=== PATIENT | male | born 1985 | race Caucasian/White ===

== ENCOUNTER 2022-03-19 16:50 | Emergency (ER) | payer OTHER, SELFPAY ==
--- NOTE | ~2022-03-19 | CT_ITS ---
EXAMINATION: CT abdomen pelvis w con DATE: 03/19/2022 20:38 INDICATION: Left lower quadrant abdominal pain, diarrhea and constipation TECHNIQUE: Computed tomography (CT) of the abdomen and pelvis was performed with 100 cc Omnipaque 350 intravenous contrast. The dose-length product was 881.33 mGy-cm. Automated exposure control and iter ative reconstruction technique were employed. COMPARISON: None. FINDINGS: Lung bases are unremarkable. Size normal. No significant pleural or pericardial effusion. T he liver, spleen, pancreas, adrenal glands and left kidney are unremarkable. There are nonobstructing right renal stones. Gallbladder is contracted. There is diverticulosis. There is mild pericolonic st randing anterior to the descending colon which may reflect mild diverticulitis or epiploic appendigit is. No evidence for perforation or abscess. There is an accessory splenule in the left upper abdomen. Nonobstructive bowel pattern. No abnormal pelvic masses or fluid collections. Tiny fat-containing um bilical hernia. IMPRESSION: 1. Mild pericolonic stranding anterior to the descending colon which may reflect mild diverticulitis or epiploic appendigitis. 2: Nonobstructing right nephrolithiasis. Reviewed, dictated and finalized at location A. IMPRESSION: 1. Mild pericolonic stranding anterior to the descending colon which may reflec t mild diverticulitis or epiploic appendigitis. 2: Nonobstructing right nephrolithiasis.
[2022-03-19 16:56] VITALS: BP 138/88; PULSE 95; RESP 16; TEMP 36.1; O2SAT 97
--- NOTE | 2022-03-19 19:02 | ED.ABDPAIN ---
HPI - Abdominal Pain General Chief Complaint: Abdominal Pain Stated Complaint: L abd pain Time Seen by Provider: 03/19/22 18:43 Source: patient Mode of arrival: ambulatory Limitations: no limitations History of Present Illness HPI narrative: This is a 37-year-old male that presents to the emergency department for left-sided abdominal pain. Ongoing over the last couple of days. Reports an episode of diarrhea. Denies fever or vomiting. Related Data Allergies Allergy/AdvReac Type Severity Reaction Status Date / Time No Known Allergies Allergy Unverified 01/05/21 14:12 Review of Systems Review of Systems: CONSTITUTIONAL: Denies fever GASTROINTESTINAL: Reports abdominal pain, and diarrhea. 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 HEAD: Normocephalic, atraumatic. EYES: EOMI. CHEST: Clear to auscultation. No respiratory distress. No wheezes rales or rhonchi HEART: Regular rate and rhythm. No murmur heard. Normal peripheral pulses. ABDOMEN: Soft, nondistended, normal active bowel sounds. Tender to palpation throughout the left side of the abdomen, without guarding. No CVA tenderness EXTREMITIES: Normal range of motion. No edema. SKIN: Warm, dry, no rash. NEURO: No focal deficits. Alert and oriented x3. PSYCH: Normal mood and affect Course Vital Signs Vital signs: Vital Signs Temperature 96.9 F L 03/19/22 16:56 Pulse Rate 95 03/19/22 16:56 Respiratory Rate 16 03/19/22 16:56 Blood Pressure 138/88 03/19/22 16:56 Pulse Oximetry 97 03/19/22 16:56 Oxygen Delivery Room Air 03/19/22 16:56 Temperature 97.3 F L 03/19/22 20:22 Pulse Rate 70 03/19/22 20:22 Respiratory Rate 16 03/19/22 20:22 Blood Pressure 142/78 H 03/19/22 20:22 Pulse Oximetry 100 03/19/22 20:22 Oxygen Delivery Room Air 03/19/22 16:56 MDM - Abdominal Pain MDM Narrative Medical decision making narrative: Patient presents to the ER for left sided abdominal pain ongoing over the last couple of days. He is afebrile and nontoxic appearing. Vitals are stable. CBC without leukocytosis. Metabolic panel without concerning findings. CT scan of the abdomen pelvis shows findings consistent with mild diverticulitis. Patient was updated on case findings. Will be started on oral antibiotics. He is to follow-up with his primary care doctor. He was given warnings to return to the ER Lab Data Attestation: I reviewed the patient's lab results. Result diagrams: 03/19/22 19:28 03/19/22 19:28 Labs: Lab Results 03/19/22 03/19/22 03/19/22 Range/Units 19:28 19:28 19:28 WBC 9.0 (4.5-10.0) K/mm3 RBC 4.89 (4.6-6.20) M/mm3 Hgb 14.9 (14.0-18.0) g/dL Hct 44.4 (42.0-52.0) % MCV 90.8 (80-100) fl MCH 30.5 (26-34) pg MCHC 33.6 (32-36) g/dl RDW 12.6 (11.5-14.5) % Plt Count 241 (150-375) k/mm3 MPV 10.5 H (7.4-10.4) fl Immature Gran % (Auto) 0.2 (0-0.5) % Neut % (Auto) 61.8 (45.5-73.1) % Lymph % (Auto) 26.4 (18.3-44.2) % [place] % (Auto) 7.6 (2.6-8.5) % Eos % (Auto) 3.6 (0-4.4) % Baso % (Auto) 0.4 (0.2-1.2) % Lymph # (Auto) 2.37 (0.9-3.2) K/mm3 [place] # (Auto) 0.7 H (0.1-0.6) K/mm3 Eos # (Auto) 0.3 (0-0.3) K/mm3 Baso # (Auto) 0.0 (0.0-0.1) K/mm3 Abs Immat Gran (auto) 0.02 (0.00-0.031) K/mm3 Absolute Neuts (auto) 5.5 (1.3-6.7) K/mm3 Absolute Nucleated RBC
[2022-03-19 19:21] VITALS: BP 132/76; PULSE 82; RESP 16; TEMP 36.3; O2SAT 100
[2022-03-19 19:34] LABS: Basophils Percent Auto 0.4 % (0.2-1.2); Eosinophils Absolute Auto 0.3 K/mm3 (0-0.3); Eosinophils Percent Auto 3.6 % (0-4.4); Hematocrit 44.4 % (42.0-52.0); Hemoglobin 14.9 g/dL (14.0-18.0); Immature Granulocyte Absolute 0.02 K/mm3 (0.00-0.031); Immature Granulocyte Percent A 0.2 % (0-0.5); Lymphocytes Absolute Auto 2.37 K/mm3 (0.9-3.2); Lymphocytes Percent Auto 26.4 % (18.3-44.2); Mean Corpuscular HGB Conc 33.6 g/dl (32-36); Mean Corpuscular Hemoglobin 30.5 pg (26-34); Mean Corpuscular Volume 90.8 fl (80-100); Mean Platelet Volume 10.5 fl (7.4-10.4); Monocytes Absolute Auto 0.7 K/mm3 (0.1-0.6); Monocytes Percent Auto 7.6 % (2.6-8.5); Neutrophils Absolute Auto 5.5 K/mm3 (1.3-6.7); Neutrophils Percent Auto 61.8 % (45.5-73.1); Platelet Count Result 241 k/mm3 (150-375); Red Blood Count 4.89 M/mm3 (4.6-6.20); Red Cell Distribution Width 12.6 % (11.5-14.5)
[2022-03-19 19:35] LABS: Appearance Urine Clear (Clear); Bilirubin Urine Negative (Negative); Blood Urine Negative (Negative); Color Urine Yellow (Yellow); Glucose Urine UA Negative (Negative); Ketones Urine Negative (Negative); Leukocyte Esterase Ur Negative LEU/UL (Negative); Nitrate Urine Negative (Negative); Protein Urine Negative (Negative); Specific Grav Ur 1.025 (1.001-1.035); Urobilinogen Urine 0.2 mg/dL (<2.0); pH Urine 6.5 (5.0-9.0)
[2022-03-19 19:38] LABS: Add Urine Microscopic? NO
[2022-03-19 19:43] LABS: Alanine Aminotransferase 33 U/L (6-50); Albumin Level 4.6 g/dL (3.5-5.1); Alkaline Phosphatase 61 U/L (38-126); Anion Gap 10 mmol/L (8-16); Aspartate Amino Transferase 28 U/L (17-59); Bilirubin,Total 0.5 mg/dL (0.2-1.3); Blood Urea Nitrogen 18 mg/dL (9-20); Calcium 9.6 mg/dL (8.4-10.2); Carbon Dioxide 27 mmol/L (22-30); Chloride 103 mmol/L (98-107); Estimated CRCL calculation 92 ml/min; Estimated Glomerular Filt Rate > 60; Glucose 93 mg/dL (65-110); Lipase 58 U/L (23-300); Potassium 3.9 mmol/L (3.4-5.0); Sodium 140 mmol/L (137-145)
[2022-03-19 20:22] VITALS: BP 142/78; PULSE 70; RESP 16; TEMP 36.3; O2SAT 100
[2022-03-19] MEDS: AMOXICILLIN/CLAVULANATE K 875-125 MG TAB 1 TABLET PO (21:21)
[2022-03-19 21:39] VITALS: BP 136/70; PULSE 74; RESP 16; TEMP 36.7; O2SAT 98
== END 2022-03-19 21:42 | disposition home or self-care (01) ==
PROVIDERS: Emergency Provider Emergency Medicine; PCP Nurse Practitioner Adult Health
DX: K57.92 Diverticulitis of intestine, part unspecified, without perforation or abscess without bleeding (principal); N20.0 Calculus of kidney
CPT/HCPCS: 36415; 74177; 80053; 81003; 83690; 85025; 99284; A9270; Q9967

== ENCOUNTER 2022-04-13 15:00 | Emergency (ER) | payer OTHER, SELFPAY ==
[2022-04-13 15:30] VITALS: BP 145/92; PULSE 74; RESP 14; TEMP 36.7; O2SAT 100
--- NOTE | 2022-04-13 16:47 | ED.WOUNDLAC ---
HPI - Wound/Laceration General Chief Complaint: Wound/Laceration <Dixie Barker PA-C - Last Filed: 04/13/22 19:29> Stated Complaint: left lower leg injury <Dixie Barker PA-C - Last Filed: 04/13/22 19:29> Time Seen by Provider: 04/13/22 16:25 <Dixie Barker PA-C - Last Filed: 04/13/22 19:29> History of Present Illness HPI narrative: Patient is a 37-year-old male here for evaluation of a lesion to his right lower extremity. Patient states that he was working in his yard when he accidentally scraped his right avila against the underside of his truck. This led to a laceration. Patient states the bleeding was controlled prior to arrival but he was told by some of his colleagues to come to the ED for evaluation. He is unsure of his last tetanus shot. <Dixie Barker PA-C - Last Filed: 04/13/22 19:29> Related Data Allergies/Adverse Reactions: Allergies Allergy/AdvReac Type Severity Reaction Status Date / Time No Known Allergies Allergy Verified 04/13/22 16:45 <Dixie Barker PA-C - Last Filed: 04/13/22 19:29> Review of Systems Review of Systems: Gen: Denies fevers or chills Eyes: Denies eye pain or visual change ENT: Denies congestion Respiratory: Denies shortness of breath or cough CV: Denies chest pain or palpitations GI: Denies abdominal pain nausea, emesis or diarrhea denies burning, urgency, frequency or hematuria Musculoskeletal: Denies back pain or muscle pain Neuro: Denies numbness, tingling, weakness or focal weakness Skin: Reports laceration to right lower extremity Except as documented, all other systems reviewed and negative <KIM Zavala Last Filed: 04/13/22 19:29> [facility] Past Medical History Medical History: Medical History De Quervain's tenosynovitis, left <SUNITA ZavalaC - Last Filed: 04/13/22 19:29> Social History Social History: Social History Smoking status: Never smoker Alcohol intake: never Additional occupation/education comments: vocational nurse Gender identity (if verbalized by the patient): Male <Dixie Barker PA-C - Last Filed: 04/13/22 19:29> Exam Narrative: Gen: Alert, oriented, no acute distress Eyes: EOMI, no icterus Pulm: Respirations even and unlabored, symmetric thorax expansion, no audible stridor or visible cyanosis CV: Regular rate per telemetry GI: No distension, no voluntary/involuntary guarding Neuro: AOx4, moves all extremities without apparent difficulty or weakness, follows commands MSK: Full range of motion in right foot, sensation intact distal to injury. Skin: Patient has a 2 x 3 cm gash to his right lower extremity with no active bleeding, no visible muscle tendons. Psych: Normal mood/affect, insight/judgement good, adequate fund of knowledge, recent/remote memory intact <Dixie Barker PA-C - Last Filed: 04/13/22 19:29> Course [employer]OR[employer]OOK BOARD ATTENDANT/PA Physician Supervision For this patient encounter, I reviewed the SPORTS BOOK BOARD ATTENDANT or PA documentation, treatment plan, and medical decision making. I was available for consultation as needed. <Anna Shrestha MD - Last Filed: 04/18/22 11:59> Vital Signs Vital signs: Vital Signs Temperature 98.0 F 04/13/22 15:30 Pulse Rate 74 04/13/22 15:30 Respiratory Rate 14 04/13/22 15:30 Blood Pressure 145/92 H 04/13/22 15:30 Pulse Oximetry 100 04/13/22 15:30 Oxygen Delivery Room Air 04/13/22 15:30 Temperature 98.0 F 04/13/22 15:30 Pulse Rate 70 04/13/22 17:50 Respiratory Rate 16 04/13/22 17:50 Blood Pressure 140/90 04/13/22 17:50 Pulse Oximetry 100 04/13/22 17:50 Oxygen Delivery Room Air 04/13/22 15:30 <Dixie Barkre PA-C - Last Filed: 04/13/22 19:29> Vital Signs Temperature 98.0 F 04/13/22 15:30 Pulse Rate 74 04/13/22 15:30 Respirat
[2022-04-13] MEDS: TETANUS,DIPHTHERIA,AC PERTUSSIS ADULT (0.5 ML) BOOSTRIX IM (17:03)
[2022-04-13] MEDS: CEPHALEXIN 500 MG CAPSULE PO (17:04)
[2022-04-13 17:50] VITALS: BP 140/90; PULSE 70; RESP 16; O2SAT 100
== END 2022-04-13 17:50 | disposition home or self-care (01) ==
LOC: ANHED 17:30
PROVIDERS: Emergency Provider Emergency Medicine; PCP Nurse Practitioner Adult Health
DX: S80.812A Abrasion, left lower leg, initial encounter (principal); Z23 Encounter for immunization; W22.8XXA Striking against or struck by other objects, initial encounter
CPT/HCPCS: 90471; 90715; 99283; A9270